=== PATIENT | male | born 1960 | race African-American/Black ===

== ENCOUNTER 2022-11-13 15:07 | Emergency (ER) | payer MEDICAID ==
[~2022-11-13] VITALS: Ht 185.4 cm; Wt 99.8 kg
[2022-11-13 15:25] VITALS: BP_SYST 131; PULSE 89; RESP 18; TEMP 97.3; O2SAT 100
[2022-11-13] MEDS ORDERED: DIPH28.34 TP (16:04)
[2022-11-13] MEDS ORDERED: DIPH25CA83 PO (16:04)
[2022-11-13] MEDS ORDERED: HYDC2.5% TP (16:04)
[2022-11-13 19:21] VITALS: BP_SYST 142; PULSE 78; RESP 18; TEMP 97.9; O2SAT 96
== END 2022-11-13 16:30 | disposition home or self-care (01) ==
LOC: SED 15:07
DX: L29.9 Pruritus, unspecified (principal); I10 Essential (primary) hypertension; Z79.899 Other long term (current) drug therapy
CPT/HCPCS: 99281